=== PATIENT | male | born 1985 | race African-American/Black ===

== ENCOUNTER 2018-12-18 15:49 | Emergency (ER) | payer OTHER ==
[~2018-12-18] VITALS: Ht 172.7 cm; Wt 74.8 kg
[2018-12-18] MEDS ORDERED: KEFLEX500 M1 PO ×3 (16:13→19:37)
[2018-12-18] MEDS ORDERED: NORCO 5-325 TA1 EAC1 PO (19:36)
[2018-12-18] MEDS ORDERED: IBUPROFEN 600600 M1 PO (19:36)
[2018-12-18 20:02] VITALS: BP 157/107
== END 2018-12-18 20:02 | disposition home or self-care (01) ==
LOC: M.ERS 15:49
DX: S62.631B Displaced fracture of distal phalanx of left index finger, initial encounter for open fracture (principal); F17.200 Nicotine dependence, unspecified, uncomplicated; W23.1XXA Caught, crushed, jammed, or pinched between stationary objects, initial encounter; Y92.89 Other specified places as the place of occurrence of the external cause; Y99.0 Civilian activity done for income or pay; Y99.8 Other external cause status